=== PATIENT | male | born 1960 | race Two or more races ===

== ENCOUNTER 2024-05-15 18:33 | Inpatient (IN) | payer MEDICARE, OTHER ==
[~2024-05-15] VITALS: Ht 172.7 cm; Wt 72.6 kg
[2024-05-15] MEDS ORDERED: ACET325T53 PO (18:54)
[2024-05-15] MEDS ORDERED: ALBU2.5V7 HHN (18:54)
[2024-05-15] MEDS ORDERED: HYDR-3326 PO (18:54)
[2024-05-15] MEDS ORDERED: diphenhydrAMINE 50 MG/1 ML VIAL ONE (18:56)
[2024-05-15] MEDS ORDERED: HALOPERIDOL LACTATE 5 MG/1 ML VIAL ONE ×2 (18:56→21:17)
[2024-05-15] MEDS ORDERED: IPRA0.2S6 HHN (18:57)
[2024-05-15] MEDS ORDERED: ALLO100T PO (18:57)
[2024-05-15] MEDS ORDERED: AMLO-212 PO (18:57)
[2024-05-15] MEDS ORDERED: ARIP5TAB59 PO (18:59)
[2024-05-15] MEDS ORDERED: APIX5TAB PO (18:59)
[2024-05-15] MEDS ORDERED: BISA5TAB10 PO (19:01)
[2024-05-15] MEDS: diphenhydrAMINE 50 MG/1 ML VIAL IM ONE (19:01)
[2024-05-15] MEDS ORDERED: ATOR10TA PO (19:01)
[2024-05-15] MEDS ORDERED: CARV3.122 PO (19:01)
[2024-05-15] MEDS: HALOPERIDOL LACTATE 5 MG/1 ML VIAL IM ONE ×2 (19:01→21:22)
[2024-05-15] MEDS ORDERED: LAMO100T17 PO (19:03)
[2024-05-15] MEDS ORDERED: LACO10SO3 PO (19:03)
[2024-05-15] MEDS ORDERED: GABA-532 PO (19:03)
[2024-05-15] MEDS ORDERED: NITR0.4T48 SL (19:05)
[2024-05-15] MEDS ORDERED: NALO0.4D4 IV (19:05)
[2024-05-15] MEDS ORDERED: LORA2VIA33 IV (19:05)
[2024-05-15] MEDS ORDERED: ONDA4VIA23 IV (19:07)
[2024-05-15] MEDS ORDERED: OLAN10TA73 PO (19:07)
[2024-05-15] MEDS ORDERED: SUCR1TAB PO (19:07)
[2024-05-15] MEDS ORDERED: ROSU20TA2 PO (20:19)
[2024-05-15] MEDS ORDERED: KETOROLAC TROMETHAMINE 30 MG INJ ONE (20:26)
[2024-05-15] MEDS: KETOROLAC TROMETHAMINE 30 MG INJ IM ONE (20:32)
[2024-05-15] MEDS: INDOMETHACIN 25 MG CAPSULE PO ONE (20:32)
[2024-05-15 22:00] VITALS: BP 135/85; TEMP 98.2; O2SAT 99
[2024-05-15] MEDS ORDERED: MAG HYDROX/AL HYDROX/SIMETH 30 ML LIQUID UDC PO PRN (23:30)
[2024-05-15] MEDS ORDERED: TEMAZEPAM 7.5 MG CAPSULE PO PRN (23:30)
[2024-05-15] MEDS ORDERED: ACETAMINOPHEN 325 MG TABLET PO PRN (23:30)
[2024-05-15] MEDS: BLOOD SUGAR DIAGNOSTIC 1 EACH STRIP VI ONE (23:36)
[2024-05-16 08:21] VITALS: BP 126/78; TEMP 98.3; O2SAT 98
[2024-05-16] MEDS ORDERED: LORA2VIA33 IV (09:42)
[2024-05-16] MEDS: CLONAZEPAM 0.5 MG TABLET PO PRN ×2 (10:18→22:16)
[2024-05-16] MEDS: ARIPIPRAZOLE 5 MG TABLET PO SCH (12:01)
[2024-05-16] MEDS: LAMOTRIGINE 100 MG TABLET PO SCH (12:01)
[2024-05-16 17:38] VITALS: BP 127/82; TEMP 98.1; O2SAT 98
[2024-05-16] MEDS: OLANZAPINE 5 MG TABLET PO SCH (17:48)
[2024-05-16] MEDS ORDERED: ALBUTEROL SULFATE 2.5 MG/3 ML NEBU NEB PRN (19:00)
[2024-05-16] MEDS ORDERED: ACETAMINOPHEN 325 MG TABLET-SA PATIENTS-PAIN ONLY PO PRN (19:00)
[2024-05-16] MEDS ORDERED: LAMOTRIGINE 100 MG TABLET PO SCH (19:00)
[2024-05-16] MEDS ORDERED: IPRATROPIUM BROMIDE 0.5 MG/2.5 ML NEBU NEB PRN (19:00)
[2024-05-16 20:00] VITALS: BP 143/86; TEMP 98; O2SAT 96
[2024-05-16] MEDS: AMLODIPINE 5 MG TABLET PO SCH (20:37)
[2024-05-16] MEDS: LACOSAMIDE 50 MG TABLET PO SCH (20:40)
[2024-05-16] MEDS: APIXABAN 5 MG TABLET PO ONE (22:12)
[2024-05-17] MEDS: TEMAZEPAM 7.5 MG CAPSULE PO PRN (01:20)
[2024-05-17] MEDS: HYDROCODONE/APAP 5-325MG TABLET PO PRN (06:59)
[2024-05-17 07:59] LABS: BASOPHILS % (AUTO) 0.5 % (0.0-2.0); EOSINOPHILS # (AUTO) 0.3 K/uL (0.0-0.7); EOSINOPHILS % (AUTO) 3.7 % (0.0-7.0); HEMATOCRIT 36.6 % (36.7-47.1); HEMOGLOBIN 12.4 g/dL (12.5-16.3); LYMPHOCYTES # (AUTO) 1.5 K/uL (0.8-4.8); LYMPHOCYTES % (AUTO) 16.3 % (20.5-51.5); MEAN CORPUSCULAR HEMOGLOBIN 27.6 uug (23.8-33.4); MEAN CORPUSCULAR HGB CONC 34 g/dL (32.5-36.3); MEAN CORPUSCULAR VOLUME 81.6 fL (73.0-96.2); MONOCYTES # (AUTO) 0.7 K/uL (0.1-1.30); MONOCYTES % (AUTO) 7.9 % (0.0-11.0); NEUTROPHILS # (AUTO) 6.5 K/uL (1.8-8.9); NEUTROPHILS % (AUTO) 71.6 % (38.5-71.5); PLATELET COUNT (AUTO) 318 K/uL (152-348); RED BLOOD CELL COUNT(AUTO) 4.49 MIL/uL (4.06-5.63); RED CELL DISTRIBUTION WIDTH 15.1 % (12.1-16.2)
[2024-05-17 08:05] LABS: DIFFERENTIAL COMMENT 1
[2024-05-17 08:18] VITALS: BP 126/75; TEMP 98.3; O2SAT 97
[2024-05-17] MEDS: ATORVASTATIN 40 MG TABLET PO SCH (08:33)
[2024-05-17] MEDS: CARVEDILOL 3.125 MG TABLET PO SCH (08:33)
[2024-05-17] MEDS: GABAPENTIN 100 MG CAPSULE PO SCH (08:33)
[2024-05-17] MEDS: APIXABAN 5 MG TABLET PO SCH (08:42)
[2024-05-17] MEDS: BISACODYL 5 MG TABLET.DR PO SCH (08:43)
[2024-05-17] MEDS: ALLOPURINOL 100 MG TABLET PO SCH (08:44)
[2024-05-17] MEDS ORDERED: Medication Not On Formulary EA (Rosuvastatin Calcium (Crestor) 20 MG) PO SCH (09:00)
[2024-05-17 09:01] LABS: THYROID STIMULATING HORMONE 0.118 mIU/mL (0.358-3.740)
[2024-05-17 09:18] LABS: BILIRUBIN,TOTAL 0.9 mg/dL (0.2-1.0); CREATININE 1.4 mg/dL (0.6-1.3); MAGNESIUM 2.3 mg/dL (1.8-2.4); TOTAL PROTEIN, SERUM 6.9 g/dL (6.4-8.2)
[2024-05-17] MEDS: POTASSIUM CHLORIDE 10 MEQ TAB.PRT.SR PO ONE (15:00)
[2024-05-17 19:35] VITALS: BP 115/87; TEMP 98.3; O2SAT 92
[2024-05-17] MEDS: OLANZAPINE 10 MG VIAL IM ONE (21:30)
[2024-05-17] MEDS: diphenhydrAMINE 50 MG/1 ML VIAL IM ONE (21:30)
[2024-05-18] MEDS: ARIPIPRAZOLE 5 MG TABLET PO SCH (07:15)
[2024-05-18] MEDS: LAMOTRIGINE 100 MG TABLET PO SCH (09:00)
[2024-05-18] MEDS: GABAPENTIN 100 MG CAPSULE PO SCH (09:00)
[2024-05-18 20:00] VITALS: BP 133/84; TEMP 98; O2SAT 95
[2024-05-18] MEDS: MAGNESIUM HYDROXIDE 30 ML LIQUID UDC PO PRN (21:34)
[2024-05-19] MEDS: OLANZAPINE 10 MG VIAL IM ONE (07:14)
[2024-05-19] MEDS: diphenhydrAMINE 50 MG/1 ML VIAL IM ONE (07:14)
[2024-05-19 07:41] VITALS: BP 107/67; TEMP 98; O2SAT 98
[2024-05-19] MEDS: APIXABAN 5 MG TABLET PO SCH (08:48)
[2024-05-19 15:04] VITALS: BP 115/80; TEMP 98; O2SAT 98
[2024-05-19 20:00] VITALS: BP 110/74; TEMP 99.2; O2SAT 97
[2024-05-19] MEDS: ATORVASTATIN 10 MG TABLET PO SCH (20:59)
[2024-05-20 07:32] LABS: BASOPHILS % (AUTO) 0.5 % (0.0-2.0); EOSINOPHILS # (AUTO) 0.2 K/uL (0.0-0.7); EOSINOPHILS % (AUTO) 2.3 % (0.0-7.0); HEMATOCRIT 39.3 % (36.7-47.1); LYMPHOCYTES # (AUTO) 1.8 K/uL (0.8-4.8); LYMPHOCYTES % (AUTO) 21.1 % (20.5-51.5); MEAN CORPUSCULAR HEMOGLOBIN 27.6 uug (23.8-33.4); MEAN CORPUSCULAR HGB CONC 33 g/dL (32.5-36.3); MEAN CORPUSCULAR VOLUME 83.6 fL (73.0-96.2); MONOCYTES # (AUTO) 0.5 K/uL (0.1-1.30); MONOCYTES % (AUTO) 6.3 % (0.0-11.0); NEUTROPHILS # (AUTO) 5.8 K/uL (1.8-8.9); NEUTROPHILS % (AUTO) 69.8 % (38.5-71.5); PLATELET COUNT (AUTO) 379 K/uL (152-348); RED CELL DISTRIBUTION WIDTH 15.6 % (12.1-16.2); WHITE BLOOD COUNT (AUTO) 8.3 K/uL (3.6-10.2)
[2024-05-20 07:38] LABS: DIFFERENTIAL COMMENT 1
[2024-05-20 07:46] LABS: CALCIUM 10.1 mg/dL (8.5-10.1); CREATININE 1.8 mg/dL (0.6-1.3); MAGNESIUM 2.8 mg/dL (1.8-2.4); PHOSPHOROUS 3.7 mg/dL (2.5-4.9); POTASSIUM 3.2 mmol/L (3.5-5.1)
[2024-05-20 07:47] VITALS: BP 98/69; TEMP 98; O2SAT 99
[2024-05-20] MEDS: OLANZAPINE 10 MG VIAL IM ONE ×3 (09:27→16:36)
[2024-05-20] MEDS: diphenhydrAMINE 50 MG/1 ML VIAL IM ONE ×3 (09:27→16:36)
[2024-05-20] MEDS: POTASSIUM CHLORIDE 10 MEQ TAB.PRT.SR PO ONE ×2 (09:30→13:30)
[2024-05-20] MEDS: IV LACTATED RINGERS SOLUTION 1,000 ML IV ONE ×2 (12:45→17:15)
[2024-05-20] MEDS ORDERED: OLANZAPINE 10 MG VIAL IM ONE (13:30)
[2024-05-20 15:51] VITALS: BP 141/90; TEMP 98; O2SAT 98
[2024-05-20 20:00] VITALS: BP 134/93; TEMP 98; O2SAT 97
[2024-05-21 07:58] VITALS: BP 138/87; TEMP 98; O2SAT 96
[2024-05-21] MEDS ORDERED: IV LACTATED RINGERS SOLUTION 1,000 ML BAG IV ONE (11:15)
[2024-05-21] MEDS: IV LACTATED RINGERS SOLUTION 1,000 ML IV ONE (11:30)
[2024-05-21 15:52] VITALS: BP 120/71; TEMP 98; O2SAT 98
[2024-05-21] MEDS: LORAZEPAM 2 MG/1 ML VIAL IM ONE (18:35)
[2024-05-21] MEDS: diphenhydrAMINE 50 MG/1 ML VIAL IM ONE (18:35)
[2024-05-21] MEDS: OLANZAPINE 10 MG VIAL IM ONE (18:35)
[2024-05-21 20:00] VITALS: BP 121/74; TEMP 98; O2SAT 97
[2024-05-22 07:50] VITALS: BP 147/71; TEMP 98.2; O2SAT 98
[2024-05-22 08:08] LABS: BASOPHILS % (AUTO) 0.5 % (0.0-2.0); EOSINOPHILS # (AUTO) 0.2 K/uL (0.0-0.7); EOSINOPHILS % (AUTO) 2.8 % (0.0-7.0); HEMOGLOBIN 11.9 g/dL (12.5-16.3); LYMPHOCYTES # (AUTO) 1.6 K/uL (0.8-4.8); LYMPHOCYTES % (AUTO) 17.8 % (20.5-51.5); MEAN CORPUSCULAR HEMOGLOBIN 27.4 uug (23.8-33.4); MEAN CORPUSCULAR HGB CONC 33 g/dL (32.5-36.3); MEAN CORPUSCULAR VOLUME 83.1 fL (73.0-96.2); MONOCYTES # (AUTO) 0.5 K/uL (0.1-1.30); MONOCYTES % (AUTO) 5.8 % (0.0-11.0); NEUTROPHILS # (AUTO) 6.5 K/uL (1.8-8.9); NEUTROPHILS % (AUTO) 73.1 % (38.5-71.5); PLATELET COUNT (AUTO) 312 K/uL (152-348); RED BLOOD CELL COUNT(AUTO) 4.34 MIL/uL (4.06-5.63); RED CELL DISTRIBUTION WIDTH 15.3 % (12.1-16.2); WHITE BLOOD COUNT (AUTO) 8.8 K/uL (3.6-10.2)
[2024-05-22 08:13] LABS: DIFFERENTIAL COMMENT 1
[2024-05-22 08:22] LABS: ALBUMIN 3.1 g/dL (3.4-5.0); CALCIUM 9.5 mg/dL (8.5-10.1); CREATININE 1.4 mg/dL (0.6-1.3); MAGNESIUM 2.3 mg/dL (1.8-2.4); PHOSPHOROUS 3.8 mg/dL (2.5-4.9); TOTAL PROTEIN, SERUM 6.7 g/dL (6.4-8.2)
[2024-05-22 08:23] LABS: POTASSIUM 4.1 mmol/L (3.5-5.1)
[2024-05-22 08:45] LABS: THYROID STIMULATING HORMONE 0.088 mIU/mL (0.358-3.740)
[2024-05-22 15:17] VITALS: BP 120/79; TEMP 98.2; O2SAT 100
[2024-05-22 20:00] VITALS: BP 112/80; TEMP 97.8; O2SAT 97
[2024-05-23 08:47] VITALS: BP 148/97; TEMP 98; O2SAT 98
[2024-05-23 20:00] VITALS: BP 100/58; TEMP 98.3; O2SAT 100
[2024-05-24] MEDS: ACETAMINOPHEN 325 MG TABLET PO PRN (06:14)
[2024-05-24 06:49] LABS: *BILIRUBIN,URIN NEGATIVE (NEGATIVE); *BLOOD, URINE NEGATIVE (NEGATIVE); *CLARITY,URINE CLEAR (CLEAR); *COLOR,URINE YELLOW (YELLOW); *KETONES,URINE TRACE (NEGATIVE); *PROTEIN,URINE NEGATIVE (NEGATIVE); *UROBILINOGEN,URINE 0.2 E.U./dl (NORMAL); LEUKOCYTE ESTERASE ,URINE NEGATIVE (NEGATIVE); NITRITE, URINE NEGATIVE (NEGATIVE); PH,URINE 5.5 (5.0-8.0); UGLUCOSE NEGATIVE (NEGATIVE)
[2024-05-24 06:56] LABS: BACTERIA,URINE FEW /HPF (NONE SEEN); WBC,URINE 0-3 /HPF (0-3)
[2024-05-24 07:09] LABS: *CREATININE,URINE 285.8 mg/dL (30-125)
[2024-05-24 09:25] VITALS: BP 124/71; TEMP 98.2; O2SAT 97
[2024-05-24 17:26] VITALS: BP 124/71; TEMP 98.2; O2SAT 97
[2024-05-24 20:04] VITALS: BP 146/93; TEMP 98; O2SAT 98
[2024-05-25 08:07] VITALS: BP 166/97; TEMP 97.8; O2SAT 98
[2024-05-25] MEDS: ENSURE WITH FIBER 237 ML LIQUID (CHOCOLATE) PO SCH (13:00)
[2024-05-25 15:58] VITALS: BP 122/77; TEMP 98.2; O2SAT 98
[2024-05-25 20:06] VITALS: BP 136/76; TEMP 98.1; O2SAT 96
[2024-05-26 07:54] VITALS: BP 138/92; TEMP 98; O2SAT 99
[2024-05-26 15:07] VITALS: BP_SYST 126; BP_SYST 132; BP_DIAS 51; BP_DIAS 74; TEMP 98; O2SAT 98
[2024-05-26 19:45] VITALS: BP 144/84; TEMP 97.9; O2SAT 100
[2024-05-27 08:06] VITALS: BP 155/68; TEMP 98; O2SAT 98
[2024-05-27 16:08] VITALS: BP 110/64; TEMP 98; O2SAT 98
[2024-05-27 20:00] VITALS: BP 138/81; TEMP 97.7
[2024-05-28 09:14] VITALS: BP 136/68; TEMP 98; O2SAT 99
[2024-05-28] MEDS: ARIPIPRAZOLE 5 MG TABLET PO SCH ×2 (09:29→20:50)
[2024-05-28 16:17] VITALS: BP 138/61; TEMP 98; O2SAT 99
[2024-05-28 19:40] VITALS: BP 130/90; TEMP 97.7; O2SAT 99
[2024-05-29 07:55] VITALS: BP 136/68; TEMP 98; O2SAT 98
[2024-05-29] MEDS: LORAZEPAM 2 MG/1 ML VIAL IM ONE (11:34)
[2024-05-29] MEDS: HALOPERIDOL LACTATE 5 MG/1 ML VIAL IM ONE (11:34)
[2024-05-29] MEDS: diphenhydrAMINE 50 MG/1 ML VIAL IM ONE (11:34)
[2024-05-29] MEDS: ARIPIPRAZOLE 5 MG TABLET PO SCH (21:00)
[2024-05-29 23:30] VITALS: BP 141/84; O2SAT 97
[2024-05-30] MEDS: ARIPIPRAZOLE 5 MG TABLET PO SCH (08:19)
[2024-05-30 09:01] VITALS: BP 130/98; TEMP 98; O2SAT 96
[2024-05-30] MEDS: BENZTROPINE MESYLATE 0.5 MG TABLET PO SCH (12:30)
[2024-05-30] MEDS: HALOPERIDOL 5 MG TABLET PO SCH (12:30)
[2024-05-30 15:30] VITALS: BP 126/69; TEMP 98; O2SAT 96
[2024-05-31] MEDS: HALOPERIDOL 5 MG TABLET PO SCH ×2 (08:51→21:08)
[2024-05-31] MEDS: BENZTROPINE MESYLATE 0.5 MG TABLET PO SCH (08:53)
[2024-05-31 09:17] LABS: BASOPHILS % (AUTO) 0.5 % (0.0-2.0); EOSINOPHILS # (AUTO) 0.3 K/uL (0.0-0.7); EOSINOPHILS % (AUTO) 4.8 % (0.0-7.0); HEMATOCRIT 37.8 % (36.7-47.1); HEMOGLOBIN 12.3 g/dL (12.5-16.3); LYMPHOCYTES # (AUTO) 1.3 K/uL (0.8-4.8); LYMPHOCYTES % (AUTO) 21.5 % (20.5-51.5); MEAN CORPUSCULAR HEMOGLOBIN 26.9 uug (23.8-33.4); MEAN CORPUSCULAR HGB CONC 33 g/dL (32.5-36.3); MEAN CORPUSCULAR VOLUME 82.8 fL (73.0-96.2); MONOCYTES # (AUTO) 0.5 K/uL (0.1-1.30); MONOCYTES % (AUTO) 8.2 % (0.0-11.0); NEUTROPHILS # (AUTO) 3.9 K/uL (1.8-8.9); PLATELET COUNT (AUTO) 220 K/uL (152-348); RED BLOOD CELL COUNT(AUTO) 4.56 MIL/uL (4.06-5.63); RED CELL DISTRIBUTION WIDTH 15.7 % (12.1-16.2); WHITE BLOOD COUNT (AUTO) 5.9 K/uL (3.6-10.2)
[2024-05-31 09:22] LABS: DIFFERENTIAL COMMENT 1
[2024-05-31 09:29] LABS: ALBUMIN 3.5 g/dL (3.4-5.0); BILIRUBIN,TOTAL 0.9 mg/dL (0.2-1.0); CALCIUM 9.5 mg/dL (8.5-10.1); CREATININE 1.3 mg/dL (0.6-1.3); MAGNESIUM 2.1 mg/dL (1.8-2.4); PHOSPHOROUS 3.4 mg/dL (2.5-4.9); POTASSIUM 4.3 mmol/L (3.5-5.1); TOTAL PROTEIN, SERUM 7.2 g/dL (6.4-8.2)
[2024-05-31 10:12] VITALS: BP 133/86; TEMP 98; O2SAT 96
[2024-05-31 15:43] VITALS: BP 146/84; TEMP 98.2; O2SAT 99
[2024-05-31 20:00] VITALS: BP 170/87; TEMP 97.7; O2SAT 98
[2024-05-31] MEDS ORDERED: GABAPENTIN 100 MG CAPSULE PO SCH (21:00)
[2024-05-31] MEDS: GABAPENTIN 400 MG CAPSULE PO SCH (21:06)
[2024-06-01 07:52] VITALS: BP 98/57; TEMP 98.5; O2SAT 100
[2024-06-01 13:09] LABS: *BILIRUBIN,URIN NEGATIVE (NEGATIVE); *BLOOD, URINE NEGATIVE (NEGATIVE); *CLARITY,URINE CLEAR (CLEAR); *COLOR,URINE YELLOW (YELLOW); *KETONES,URINE NEGATIVE (NEGATIVE); *PROTEIN,URINE TRACE (NEGATIVE); LEUKOCYTE ESTERASE ,URINE NEGATIVE (NEGATIVE); NITRITE, URINE NEGATIVE (NEGATIVE); PH,URINE 6.5 (5.0-8.0); UGLUCOSE NEGATIVE (NEGATIVE)
[2024-06-01 13:13] LABS: BACTERIA,URINE FEW /HPF (NONE SEEN); WBC,URINE 0-3 /HPF (0-3)
[2024-06-01 16:00] VITALS: BP 104/67; TEMP 97.5; O2SAT 99
[2024-06-01 20:00] VITALS: BP 115/90; TEMP 97.7; O2SAT 98
[2024-06-02 07:47] VITALS: BP 126/69; TEMP 98; O2SAT 98
[2024-06-02 15:36] VITALS: BP_SYST 112; BP_SYST 143; BP_DIAS 69; BP_DIAS 84; TEMP 98; O2SAT 98
[2024-06-02 20:00] VITALS: BP_SYST 107; BP_SYST 109; BP_DIAS 70; BP_DIAS 71; TEMP 98; O2SAT 95; O2SAT 96
[2024-06-03 08:01] VITALS: BP 139/62; TEMP 98.2; O2SAT 98
[2024-06-03 08:49] VITALS: BP 139/62
== END 2024-06-03 13:45 | DRG 885 ==
LOC: ER 18:33 → GPS 21:42
PROVIDERS: ADMIT Psychiatry & Neurology Psychiatry; ATTEND Internal Medicine
DX: F29 Unspecified psychosis not due to a substance or known physiological condition (principal); F05 Delirium due to known physiological condition; N18.9 Chronic kidney disease, unspecified; N17.0 Acute kidney failure with tubular necrosis; E86.0 Dehydration; F39 Unspecified mood [affective] disorder; R41.89 Other symptoms and signs involving cognitive functions and awareness; M15.9 Polyosteoarthritis, unspecified; M10.9 Gout, unspecified; G89.29 Other chronic pain; Z86.718 Personal history of other venous thrombosis and embolism; Z91.148 Patient's other noncompliance with medication regimen for other reason; Z79.899 Other long term (current) drug therapy; G40.909 Epilepsy, unspecified, not intractable, without status epilepticus; F25.9 Schizoaffective disorder, unspecified; I12.9 Hypertensive chronic kidney disease with stage 1 through stage 4 chronic kidney disease, or unspecified chronic kidney disease; E78.5 Hyperlipidemia, unspecified; E05.90 Thyrotoxicosis, unspecified without thyrotoxic crisis or storm; E87.6 Hypokalemia
CPT/HCPCS: 36415; 83735; 84100; 84300; 84443; 84481; 85025; A4606; A4663; J1200; J1630; J1885; J2060; J2358; J7120; J8499